=== PATIENT | male | born 1950 | race Caucasian/White ===

== ENCOUNTER → 2019-10-14 10:34 | Outpatient (CLI) | payer MEDICARE, SELFPAY ==
--- NOTE | 2019-10-14 | DI.US.S_ITS ---
PROCEDURE: US PERIPH VENOUS LOW EXTREM BI INDICATIONS: R/O DVT TECHNIQUE: Real-time imaging, as well as color and pulse Doppler interrogation, were performed of the deep veins of both legs from the inguinal ligament to the popliteal fossa. COMPARISON: None. FINDINGS: Right: The common femoral, femoral and popliteal veins are normally compressible, and free of intraluminal thrombus. Color and pulse Doppler demonstrate normal phasic intravascular flow. There is normal augmentation response to distal compression maneuver. Left: The common femoral, femoral and popliteal veins are normally compressible, and free of intraluminal thrombus. Color and pulse Doppler demonstrate normal phasic intravascular flow. There is normal augmentation response to distal compression maneuver. IMPRESSION: No evidence of deep vein thrombosis involving either the right or left lower extremities. Dictated by: Catrina Smith MD, PhD on 10/14/2019 at 11:30 Approved by: Catrina Smith MD, PhD on 10/14/2019 at 11:38
== END ==
PROVIDERS: PCP Family Medicine; Referring Provider Physician Assistant Medical; Visit Provider Physician Assistant Medical
DX: M79.662 Pain in left lower leg (principal); R60.9 Edema, unspecified
CPT/HCPCS: 93970

== ENCOUNTER 2021-03-29 14:21 | Emergency (ER) | payer MEDICARE, SELFPAY ==
--- NOTE | 2021-03-29 14:34 | PC.NURSE ---
called patient . in restroom.
[2021-03-29 14:45] VITALS: BP 127/76; PULSE 74; RESP 14; TEMP 36.7; O2SAT 96; BMI 28.0
--- NOTE | 2021-03-29 14:52 | DI.RAD.S_ITS ---
PROCEDURE: XR HIP W PEL IF DONE RT 2V INDICATIONS: pain after a fall. TECHNIQUE: AP pelvis with lateral view(s) of the right hip(s). COMPARISON: None. FINDINGS: Bones: No fractures or dislocations. Pelvic ring appears intact. No suspicious bony lesions. Soft tissues: The visualized bowel gas pattern is normal. No suspicious soft tissue calcifications. IMPRESSION: No visualized acute fracture or dislocation. However, if clinical concern and/or pain persist, short interval imaging followup in 7-10 days is recommended, as occult injury cannot be definitively excluded. Dictated by: Viri Hernández M.D. on 03/29/2021 at 15:27 Approved by: Viri Hernández M.D. on 03/29/2021 at 15:27
--- NOTE | 2021-03-29 14:55 | DI.RAD.S_ITS ---
PROCEDURE: XR SHOULDER LT MIN 2V INDICATIONS: fall . TECHNIQUE: 3 views of the shoulder were acquired. COMPARISON: None. FINDINGS: Bones: No fractures or dislocations. No suspicious bony lesions. Visualized ribs appear intact. There is mild periarticular osteophyte formation at the acromioclavicular and glenohumeral joints. Subchondral cyst formation within the greater tuberosity of the humeral head. Soft tissues: No suspicious soft tissue calcifications. IMPRESSION: Osteoarthritis. No acute fracture. No osseous lesion. If symptoms and/or clinical suspicion for pathology persist, further assessment with repeat, or advanced imaging (e.g., CT, MRI, or bone scan) may be helpful for further assessment. Dictated by: Anthony Santizo M.D. on 03/29/2021 at 16:14 Approved by: Anthony Santizo M.D. on 03/29/2021 at 16:14
--- NOTE | 2021-03-29 19:01 | ED.FALL ---
HPI - Fall <Willian Juarez PA-C - Last Filed: 04/11/21 12:05> General Chief Complaint: Fall Stated Complaint: Fall,Pain Rt Thigh/Left Back Pain/Lt Shoulder Pain Time Seen by Provider: 03/29/21 17:58 Source: patient and family Mode of arrival: Family Vehicle History of Present Illness HPI Narrative: Patient is a 70-year-old male presenting to the emergency department today for evaluation of left hip pain. Patient states that he he fell after being pulled by his daughters hermilo following on his left side on a compacted shale hard surface. He presents today right hamstring pain, left shoulder pain, left hip pain, and left sacral pain. Patient states that his pain is worsened with standing up straight. Additionally, patient states he is able to walk on his bilateral lower extremities but experiences discomfort with movement. Patient states that he has used ice and ibuprofen at home which has seemed to help improve his pain. Of note, patient states he did not feel dizzy or lightheaded prior to falling and did not hit his head or lose consciousness as a result of the fall. Denies fever, chills, chest pain, shortness of breath, nausea, vomiting, diarrhea, dysuria, hematuria, abdominal pain, cough, numbness or tingling in the bilateral lower extremities, urinary incontinence, or fecal incontinence. Related Data Home Medications Medication Instructions Recorded Confirmed [VITAMINS] #0 05/09/16 Previous Rx's Medication Instructions Recorded phenazopyridine 200 mg tablet 200 mg PO TID PRN #6 tab 05/09/16 (Pyridium) tamsulosin 0.4 mg capsule (Flomax) 0.4 mg PO QDAY 7 Days #0 cap 05/09/16 gabapentin 300 mg capsule 300 mg PO BEDTIME #20 cap 03/29/21 Allergies Allergy/AdvReac Type Severity Reaction Status Date / Time Fish Containing Products Allergy Unknown SEAFOOD Unverified 08/05/17 13:00 shellfish derived Allergy Unknown SEAFOOD Unverified 08/05/17 13:00 shrimp Allergy Unknown SEAFOOD Unverified 08/05/17 13:00 SEAFOOD Allergy Unknown Uncoded 08/05/17 13:00 Review of Systems <Willian Juarez PA-C - Last Filed: 04/11/21 12:05> Constitutional Constitutional: Denies chills, Denies fatigue, Denies fever(s), Denies frequent falls, Denies lethargy and Denies weakness Eyes Eyes: Denies loss of vision ENT Ears, Nose, Mouth, and Throat: Denies dizziness and Denies neck pain Cardiovascular Cardiovascular: Denies chest pain, Denies irregular heart rhythm, Denies lightheadedness, Denies palpitations, Denies dyspnea, Denies dyspnea on exertion and Denies orthopnea Respiratory Respiratory: Denies cough, Denies dyspnea, Denies dyspnea on exertion and Denies wheezing Gastrointestinal Gastrointestinal: Denies abdominal pain, Denies change in bowel habits, Denies diarrhea, Denies nausea and Denies vomiting Genitourinary Genitourinary: Denies hematuria, Denies flank pain, Denies urinary incontinence and Denies urinary urgency Musculoskeletal Musculoskeletal: Reports back pain (Left-sided sacral pain), Reports arthralgias (Left hip, left shoulder), Denies joint swelling, Denies muscle weakness, Denies neck pain, Denies numbness, Denies tingling and Reports other (Right hamstring pain) Integumentary/Breasts Skin/Breast: Denies pruritus, Denies erythema, Denies rash and Denies wounds Neurologic Neurologic: Denies behavioral changes, Denies confusion, Denies dizziness, Denies frequent falls, Denies loss of vision, Denies numbness, Denies tingling and Denies weakness Psychiatric Psychiatric: Denies behavioral changes and Denies confusion Endocrine Endocrine: Denies fatigue and Denies palpitations Allergic/Immunologic Allergic/Immunologic: Denies wheezing Patient History <Willian Juarez PA-C - Last Filed: 04/11/21 12:05> Social History Smoking Status: Former smoker Smoking Status: Former smoker alcohol intake frequency: holidays/special occasions only Alcohol type: wine Substance Use Type: does not use Exam <Willian Juarez PA-C - Last Filed: 04/11/21 12:05> Narrative Exam Narrative: GENERAL: 70 year old patient appears stated age. Well-developed patient, in no acute distress. HEAD: Atraumatic. Normocephalic. EYES: Pupils equal round and reactive. Extraocular motions intact. No scleral icterus. No injection or drainage. ENT: Nose without bleeding, purulent drainage. Throat without erythema, tonsillar hypertrophy or exudate. Airway patent. NECK: Trachea midline. Non tender CARDIOVASCULAR: Regular rate and rhythm without murmurs, gallops, or rubs. RESPIRATORY: Clear to auscultation. Breath sounds equal bilaterally. No wheezes, rales, or rhonchi. GASTROINTESTINAL: Abdomen soft, non-tender, nondistended. EXTREMITIES: No edema. Mild tenderness to palpation appreciated throughout the right hamstring, mild tenderness to palpation over the left hip. Sensation appreciated throughout the bilateral upper and lower extremities to light touch. Gross motor function intact throughout the bilateral upper and lower extremities. BACK: Nontender without deformity or crepitance. No flank tenderness. No L-spine tenderness. No tenderness to palpation appreciated over the sacrum. NEURO: AOx3. SKIN: No rash or erythema of visible areas Initial Vital Signs Initial Vital Signs: Vital Signs Temperature 98.0 F 03/29/21 14:45 Pulse Rate 74 03/29/21 14:45 Respiratory Rate 14 03/29/21 14:45 Blood Pressure 127/76 03/29/21 14:45 Pulse Oximetry 96 03/29/21 14:45 <Kali Peralta DO - Last Filed: 04/12/21 09:52> Initial Vital Signs Initial Vital Signs: Vital Signs Temperature 98.0 F 03/29/21 14:45 Pulse Rate 74 03/29/21 14:45 Respiratory Rate 14 03/29/21 14:45 Blood Pressure 127/76 03/29/21 14:45 Pulse Oximetry 96 03/29/21 14:45 Course <Willian Juarez PA-C - Last Filed: 04/11/21 12:05> Course Course Narrative: Left shoulder and left hip x-rays obtained. Orders Ordered: ED Orders 03/29/21 14:52 XR hip w pel if done RT 2V Stat 03/29/21 14:55 XR shoulder LT min 2V Stat Vital Signs Vital signs: Vital Signs - 8 hr 03/29/21 14:45 Temperature 98.0 F Pulse Rate 74 Respiratory Rate 14 Blood Pressure 127/76 Pulse Oximetry 96 <Kali Peralta DO - Last Filed: 04/12/21 09:52> Orders Ordered: ED Orders 03/29/21 14:52 XR hip w pel if done RT 2V Stat 03/29/21 14:55 XR shoulder LT min 2V Stat Vital Signs Vital signs: Vital Signs - 8 hr 03/29/21 14:45 Temperature 98.0 F Pulse Rate 74 Respiratory Rate 14 Blood Pressure 127/76 Pulse Oximetry 96 MDM - Fall <Willian Juarez PA-C - Last Filed: 04/11/21 12:05> Lab Data Labs: Urine Dip Bedside Urine Glucose Negative Bedside Urine Bilirubin - Negative Bedside Urine Ketone - Negative Urine Specific Greene 1.025 Bedside Urine Occult Blood - Negative Bedside Urine pH 6.0 Bedside Urine Protein - Negative Bedside Urine Urobilinogen - Negative Bedside Urine Nitrite - Negative Bedside Urine Leukocytes - Negative Esterase Imaging Data Extremity x-ray #1: Radiologist's Impression: PROCEDURE:? XR SHOULDER LT MIN 2V ? INDICATIONS:? fall . ? TECHNIQUE:? 3 views of the shoulder were acquired.? ? COMPARISON:? None. ? FINDINGS:? ? Bones:? No fractures or dislocations.? No suspicious bony lesions.? Visualized ribs appear intact.? There is mild periarticular osteophyte formation at the acromioclavicular and glenohumeral joints.? Subchondral cyst formation within the greater tuberosity of the humeral head. ? Soft tissues:? No suspicious soft tissue calcifications.? ? IMPRESSION:? Osteoarthritis. No acute fracture. No osseous lesion. If symptoms and/or clinical suspicion for pathology persist, further assessment with repeat, or advanced imaging (e.g., CT, MRI, or bone scan) may be helpful for further assessment. ? ? Dictated by: Anthony Santizo M.D. on 03/29/2021 at 16:14 ? ? Approved by: Anthony Santizo M.D. on 03/29/2021 at 16:14 ? Extremity x-ray #2: Radiologist's Impression: PROCEDURE:? XR HIP W PEL IF DONE RT 2V ? INDICATIONS:? pain after a fall. ? TECHNIQUE:? AP pelvis with lateral view(s) of the right hip(s).? ? COMPARISON:? None. ? FINDINGS:? ? Bones:? No fractures or dislocations.? Pelvic ring appears intact.? No suspicious bony lesions.? ? Soft tissues:? The visualized bowel gas pattern is normal.? No suspicious soft tissue calcifications.? ? ? IMPRESSION:? No visualized acute fracture or dislocation. However, if clinical concern and/or pain persist, short interval imaging followup in 7-10 days is recommended, as occult injury cannot be definitively excluded. ? Dictated by: Viri Hernández M.D. on 03/29/2021 at 15:27 ? ? Approved by: Viri Hernández M.D. on 03/29/2021 at 15:27 ? MDM Narrative Medical decision making narrative: To consider fracture versus dislocation versus sprain versus strain versus radiculopathy. Overall physical examination and history reassuring. No L-spine tenderness appreciated when palpating the vertebrae. No bony step-offs appreciated on exam and patient has good motor function throughout the bilateral upper and lower extremities. Additionally, x-rays obtained in the emergency department today did not show any signs of acute injury. Discussed with patient the importance of following up with primary care and Orthopedics. Strict return precautions discussed with patient prior to discharge. <Kali Peralta, - Last Filed: 04/12/21 09:52> Lab Data Labs: Urine Dip Bedside Urine Glucose Negative Bedside Urine Bilirubin - Negative Bedside Urine Ketone - Negative Urine Specific Greene 1.025 Bedside Urine Occult Blood - Negative Bedside Urine pH 6.0 Bedside Urine Protein - Negative Bedside Urine Urobilinogen - Negative Bedside Urine Nitrite - Negative Bedside Urine Leukocytes - Negative Esterase Discharge Plan Departure Patient Disposition: Home Clinical Impression: Acute pain of left hip, Acute pain of left shoulder, Acute pain of right lower extremity Instructions: DI for Shoulder Pain, DI for Hip Pain Activity Restrictions/Additional Instructions: *You have been diagnosed with left hip pain, left shoulder pain, right leg pain *What to do: *Please continue to take your regular medications as directed. [ ] New medication prescriptions sent to your pharmacy: [ ] [ ] New medication written as a paper prescription [X] No new medications given *Please follow up with your primary care provider in 2-3 days, call for an appointment. Let them know you were seen in the Emergency Department and that we ask that you be seen in follow up. We will electronically transmit a record of today's note if your PCP is in our system. *Please follow-up with [facility] for the earliest available appointment. Office can be reached at . *If you do not have a primary care provider please contact the [facility] Resource line at [phone]. They will ask some questions about your medical history and help get you set up with a doctor in the community. *Return to Emergency Department if you should have any new, worsening or concerning symptoms, such as fever greater than 101 F, shaking chills, worsening pain, decreased sensation to touch in the thighs, wearing incontinence, fecal incontinence, persistent vomiting or other bothersome symptoms. Prescriptions: New gabapentin 300 mg capsule 300 mg PO BEDTIME Qty: 20 0RF No Action [VITAMINS] Qty: 0 0RF tamsulosin [Flomax] 0.4 MG capsule,extended release 24hr 0.4 mg PO QDAY 7 Days Qty: 0 0RF phenazopyridine [Pyridium] 200 MG tablet 200 mg PO TID PRNQty: 6 0RF Referrals: Sai Kee MD [Physician] - As soon as possible Sandrita Henley PA-C [Primary Care Provider] - <Kali Peralta DO - Last Filed: 04/12/21 09:52> Cosign ED Attending Alvaroature Attestation: I was immediately available in the department for consultation. This documentation has been reviewed and I agree with assessment and plan. Supervised by Kali Peralta DO
== END 2021-03-29 19:42 | disposition home or self-care (01) ==
PROVIDERS: Emergency Provider Physician Assistant; PCP Physician Assistant Medical
DX: M25.552 Pain in left hip (principal); M25.512 Pain in left shoulder; M79.651 Pain in right thigh; Z87.891 Personal history of nicotine dependence
CPT/HCPCS: 73030; 73502; 81003; 99283

== ENCOUNTER → 2024-06-28 10:58 | Outpatient (CLI) | payer MEDICARE, SELFPAY ==
[2024-06-28 19:32] LABS: Add Manual Diff / Slide Review NO; Basophils Absolute Auto 0 /uL (0-100); Basophils Percent Auto 1.1 % (0-2); Eosinophils Absolute Auto 100 /uL (0-450); Eosinophils Percent Auto 3.5 % (2-4); Hematocrit 42.4 % (41-53); Hemoglobin 14.6 g/dL (13.5-17.5); Lymphocytes Absolute Auto 1300 /uL (1100-4500); Lymphocytes Percent Auto 30.3 % (25-40); Mean Corpuscular HGB Conc 34.4 % (30-36); Mean Corpuscular Hemoglobin 31.7 PG (26-34); Mean Corpuscular Volume 92.2 fL (80-100); Monocytes Absolute Auto 300 /uL (0-900); Monocytes Percent Auto 6.9 % (3-14); Neutrophils Absolute Auto 2400 /uL (1500-7000); Neutrophils Percent Auto 58.2 % (50-75); Platelet Count 184 X10^3/uL (150-400); Red Blood Cell Count 4.59 X10^6/uL (4.5-5.9); Red Cell Distribution Width 13.2 % (11.6-14.8); White Blood Cell Count 4.2 X10^3/uL (4.5-11.0)
[2024-06-28 20:04] LABS: HEMOLYSIS < 15 (0-50)
[2024-06-28 20:08] LABS: Alanine Aminotransferase 17 IU/L (<50); Albumin Globulin Ratio 1.7 (1.0-2.8); Alkaline Phosphatase 74 U/L (38-126); Aspartate Aminotransferase 23 IU/L (17-59); BUN Creatinine Ratio 19.8 (6-22); Bilirubin Total 1.5 mg/dL (0.2-1.3); Blood Urea Nitrogen 21 mg/dL (9-20); Calcium 9.7 mg/dL (8.4-10.2); Carbon Dioxide 29 mmol/L (22-32); Chloride 106 mmol/L (98-107); Cholesterol 199 mg/dL (140-199); Estimated Glomerular Filt Rate > 60 mL/min (>60); Globulin 2.3 g/dL (1.7-4.1); Glucose 106 mg/dL (80-110); HDL Cholesterol 66 mg/dL (40-60); LDL Cholesterol Calculated 116 mg/dL (<100); Potassium 4.6 mmol/L (3.4-5.1); Sodium 140 mmol/L (137-145); Total Protein 6.3 g/dL (6.3-8.2); Triglycerides 83 mg/dL (35-150)
[2024-06-29 13:39] LABS: Prostate Specific Antigen Scrn 3.02 ng/mL (0.1-4.0)
== END ==
PROVIDERS: PCP Family Medicine; Visit Provider Physician Assistant
DX: Z12.5 Encounter for screening for malignant neoplasm of prostate (principal); D64.9 Anemia, unspecified; Z13.6 Encounter for screening for cardiovascular disorders; N40.0 Benign prostatic hyperplasia without lower urinary tract symptoms; Z79.899 Other long term (current) drug therapy
CPT/HCPCS: 80053; 80061; 85025; G0103